=== PATIENT | female | born 1965 | race African-American/Black ===

== ENCOUNTER 2017-06-07 13:37 | Emergency (ER) | END 2017-06-07 17:30 | disposition home or self-care (01) ==

== ENCOUNTER 2017-06-10 12:36 | Emergency (ER) | END 2017-06-10 13:18 | disposition home or self-care (01) ==

== ENCOUNTER 2017-06-14 19:50 | Emergency (ER) | END 2017-06-14 21:04 | disposition home or self-care (01) ==

== ENCOUNTER 2017-06-16 20:15 | Emergency (ER) | END 2017-06-16 20:24 | disposition left against medical advice (07) ==